=== PATIENT | female | born 1945 | race American Indian/Alaskan Native ===

== ENCOUNTER 2019-11-15 11:51 | Outpatient (CLI) | payer MEDICARE ==
--- NOTE | 2019-11-15 16:09 | Mammography Report ---
DIGITAL DIAGNOSTIC MAMMOGRAM WITH CAD, 11/15/2019 INDICATION: History of right breast cancer status post partial mastectomy. Z85.3 TECHNIQUE: Digital bilateral mammographic imaging was performed. This examination was interpreted with the benefit of Computer-aided Detection analysis. COMPARISON: None available. FINDINGS: Breast Density: The breasts are almost entirely fatty. There is no evidence of dominant mass, suspicious calcifications or architectural distortion in eithe r breast. The right breast is slightly smaller than the left. Scattered bilateral benign calcificatio ns. IMPRESSION: No mammographic evidence of malignancy. Follow up recommendation: Routine yearly BI-RADS Category 2: Benign. A "normal" or negative report should not discourage follow up or biopsy of a clinically significant f inding. A written summary of these findings will be mailed to the patient. The patient will be entered into a mammography reporting system which will generate a reminder letter for the patient's next appointmen t at the appropriate interval. According to the [employer], yearly mammograms are recommended starting at age 40 and continuing as long as a woman is in good health. Breast MRI is recommended for women with an ravindra roximately 20-25% or greater lifetime risk of breast cancer, including women with a strong family his tory of breast or ovarian cancer and women who have been treated for Hodgkin's disease. Signer Name: Reddy White MD Signed: 11/15/2019 4:04 PM Workstation Name: [id number]
== END 2019-11-15 11:52 | disposition home or self-care (01) ==
LOC: MAMMO 11:51
PROVIDERS: ATTEND Internal Medicine
DX: R92.8 Other abnormal and inconclusive findings on diagnostic imaging of breast (principal); Z85.3 Personal history of malignant neoplasm of breast
CPT/HCPCS: 77066

== ENCOUNTER 2020-10-30 08:37 | Outpatient (CLI) | payer MEDICARE ==
--- NOTE | 2020-10-30 15:33 | Mammography Report ---
DIGITAL SCREENING MAMMOGRAM WITH CAD, 10/30/2020 CLINICAL INFORMATION / INDICATION: Routine screening mammography. ROUTINE TECHNIQUE: Digital bilateral 2D mammography was obtained in the craniocaudal and mediolateral obliqu e projections. This examination was interpreted with the benefit of Computer-Aided Detection analysis . COMPARISON: 11/15/2019 FINDINGS: Breast Density: There are scattered areas of fibroglandular density. No dominant mass, suspicious calcifications, or architectural distortion in either breast. There are stable postsurgical changes of the right breast. Bilateral benign-appearing calcifications are stable. IMPRESSION: No mammographic evidence of malignancy. Follow up recommendation: Routine yearly BI-RADS Category 2: Benign. A "normal" or negative report should not discourage follow up or biopsy of a clinically significant f inding. A written summary of these findings will be mailed to the patient. The patient will be entered into a mammography reporting system which will generate a reminder letter for the patient's next appointmen t at the appropriate interval. The [employer] recommends yearly mammograms starting at age 40 and continuing as l dixon as a woman is in good health. Breast MRI is recommended for women with an approximate 20-25% or greater lifetime risk of breast cancer, including women with a strong family history of breast or ova emil cancer or who have been treated for Hodgkin's disease. Signer Name: Billy Paul MD Signed: 10/30/2020 3:28 PM Workstation Name: [email or web address]
== END 2020-10-30 08:38 | disposition home or self-care (01) ==
LOC: MAMMO 08:37
PROVIDERS: ATTEND Clinical Nurse Specialist Adult Health
DX: Z12.31 Encounter for screening mammogram for malignant neoplasm of breast (principal); R92.1 Mammographic calcification found on diagnostic imaging of breast
CPT/HCPCS: 77067

== ENCOUNTER 2022-01-28 07:07 | Emergency (ER) | payer MEDICARE ==
[2022-01-28] MEDS ORDERED: TETANUS,DIPH,PERTUSS(ACELL) VACCINE 0.5 ML SYRINGE IM ONE (09:28)
[2022-01-28] MEDS ORDERED: HYDROcodone/ACETAMINOPHEN 5-325 MG TAB PO ONE (09:28)
--- NOTE | 2022-01-28 09:36 | Emergency Department Report ---
HPI - General Chief Complaint: Head Injury Time Seen by Provider: 01/28/22 09:19 - [facility] HPI: MSE 5 The patient is a 76-year-old female present with chief complaint of head pain after fall. This morning the patient states she believes she tripped over a tree stump and fell striking her face on the concrete. Patient denies loss of consciousness. Patient complains of pain in her head and face as well as her right ring finger. ED Past Medical Hx - Past Medical History Hx of Cancer: Yes (Breast CA status post lymph node dissect) - Surgical History Hx Internal Defibrillator: Yes Additional Surgical History: Bilateral cataract surgery, right lymph node dissection and lumpectomy - Family History Family history: no significant - Social History Smoking Status: Never Smoker Substance Use Type: None - Medications Home Medications: Home Medications Medication Instructions Recorded Confirmed Last Taken Type HYDROcodone/APAP 5-325 [Mercedita 1 each PO Q6HR PRN #10 tablet 01/28/22 Unknown Rx 5/325] ED Review of Systems ROS: Stated complaint: FELL, LUMP ON EYE Other details as noted in HPI Constitutional: no symptoms reported Eyes: other ENT: denies: throat pain Respiratory: no symptoms reported Cardiovascular: denies: chest pain Endocrine: no symptoms reported Gastrointestinal: denies: vomiting Genitourinary: denies: dysuria Musculoskeletal: denies: arthralgia Neurological: headache Physical Exam - Physical Exam Vital Signs: Vital Signs 01/28/22 08:58 Temperature 97.8 F Pulse Rate 92 H Respiratory 18 Rate Blood Pressure 157/75 [Right] O2 Sat by Pulse 97 Oximetry Physical Exam: GENERAL: The patient is well-developed well-nourished female sitting on stretcher with obvious left periorbital swelling. [] HEENT: Normocephalic. Left periorbital swelling and ecchymosis. No hyphema or hypopyon. No subconjunctival hemorrhage appreciated. Extraocular motions are intact. Patient has moist mucous membranes. NECK: Supple. No axial tenderness to palpation but left lateral soreness to palpation CHEST/LUNGS: Clear to auscultation. There is no respiratory distress noted. HEART/CARDIOVASCULAR: Regular. There is no tachycardia. There is no gallop rub or murmur. ABDOMEN: Abdomen is soft, nontender. Patient has normal bowel sounds. There is no abdominal distention. SKIN: There is no rash. There is no edema. There is no diaphoresis. NEURO: The patient is awake, alert, and oriented. The patient is cooperative. The patient has no focal neurologic deficits. The patient has normal speech. GCS 15 MUSCULOSKELETAL: There is no axial tenderness to palpation. There is no evidence of acute injury. ED Course Vital Signs 01/28/22 08:58 Temperature 97.8 F Pulse Rate 92 H Respiratory 18 Rate Blood Pressure 157/75 [Right] O2 Sat by Pulse 97 Oximetry ED Medical Decision Making - Radiology Data Radiology results: report reviewed (CT head, CT facial bones, CT cervical spine), image reviewed (CT head, CT facial bones, CT cervical spine, right hand x-ray) interpreted by me: Right hand x-ray-no acute fracture [facility] [address] [address] Cat Scan Report Signed Patient: EDUARDA LOBO MR#: [id number] : 1945 Acct:[id number] Age/Sex: 76 / F ADM Date: 01/28/22 Loc: ED Attending Dr: Ordering Physician: LUCERO ROSADO MD Date of Service: 01/28/22 Procedure(s): CT head/brain wo con Accession Number(s): [id number] cc: LUCERO ROSADO MD . CT head/brain wo con INDICATION / CLINICAL INFORMATION: 76 years Female; Head injury after trip and fall onto concrete. TECHNIQUE: Routine CT head without contrast. All CT scans at this location are performed using CT dose reduction for ALARA by means of automated exposure control. COMPARISON: None. FINDINGS: BRAIN / INTRACRANIAL CONTENTS: No acute hemorrhage, mass effect, midline shift, hydrocephalus, or acute, large territorial infarct. No signs of significant atrophy or chronic infarct. There are mild areas of increased signal intensity on FLAIR imaging in the white matter of the cerebral hemispheres. These are nonspecific findings and may be related to microangiopathy (hypertension, diabetes, atherosclerosis), given the patient's age. CRANIOCE RVICAL JUNCTION: No significant abnormality. ORBITS: No significant abnormality of visualized orbits. SINUSES / MASTOIDS: Visualized paranasal sinuses and mastoid air cells are essentially clear. ADDITIONAL FINDINGS: Subcutaneous soft tissue swelling is seen in the left periorbital region. No definitive signs of underlying calvarial or facial bone fracture appreciated. Atherosclerotic disease is seen in the anterior circulation. Mild temporomandibular joint disease noted on the right. IMPRESSION: 1. No focal mass, intracranial hemorrhage, hydrocephalus, or acute, large territorial infarct. Signer Name: Jean Stokes MD, III Signed: 01/28/2022 10:03 AM Workstation Name: [id number] Transcribed By: HR Dictated By: Jean Stokes MD Electronically Authenticated By: Jean Stokes MD Signed Date/Time: 01/28/22 1003 DD/ 1000 TD/TT: Print Cancel [facility] [address] [place] [address] Cat Scan Report Signed Patient: EDUARDA LOBO MR#: [id number] : 1945 Acct:[id number] Age/Sex: 76 / F ADM Date: 01/28/22 Loc: ED Attending Dr: Ordering Physician: LUCERO ROSADO MD Date of Service: 01/28/22 Procedure(s): CT facial bones wo con Accession Number(s): [id number] cc: LUCERO ROSADO MD CT facial bones wo con INDICATION / CLINICAL INFORMATION: 76 years Female; Head injury after trip and fall onto concrete. TECHNIQUE: Thin cut axial images obtained. Sagittal and coronal reconstructions performed. All CT scans at this location are performed using CT dose reduction for ALARA by means of automated exposure control. COMPARISON: None available. FINDINGS: Subcutaneous hematoma seen in the left periorbital region. No signs of underlying calvarial or facial bone fracture appreciated. Intraorbital structures are grossly normal. There is mild mucosal thickening in the ethmoids. Mild to moderate temporomandibular joint disease suggested on the right and mild on the left. Right thyroid lobe may have been resected. Please clinically correlate. The left thyroid lobe is mildly enlarged and demonstrates nodules/cysts, as well as coarse calcifications. Follow-up with ultrasound as clinically warranted. Note, the left thyroid lobe is not completely visualized on this study. Parotid, submandibular, and expected location of the sublingual glands are grossly normal. Patient is edentulous. Mild degenerative changes seen in the cervical spine. Please see report from cervical spine CT, performed same day, for pertinent information. IMPRESSION: 1. No signs of acute bony facial trauma. 2. Mildly prominent left thyroid lobe, as described above. Follow-up as clinically warranted. Signer Name: Jean Stokes MD, III Signed: 01/28/2022 10:07 AM Workstation Name: [id number] Transcribed By: HR Dictated By: Jean Stokes MD Electronically Authenticated By: Jean Stokes MD Signed Date/Time: 01/28/22 1007 DD/ 1003 TD/TT: Print Cancel [facility] [address] [place] [address] Cat Scan Report Signed Patient: EDUARDA LOBO MR#: [id number] : 1945 Acct:[id number] Age/Sex: 76 / F ADM Date: 01/28/22 Loc: ED Attending Dr: Ordering Physician: LUCERO ROSADO MD Date of Service: 01/28/22 Procedure(s): CT cervical spine wo con Accession Number(s): [id number] cc: LUCERO ROSADO MD CT cervical spine wo con INDICATION / CLINICAL INFORMATION: 76 years Female; Head injury after trip and fall onto concrete. TECHNIQUE: Axial CT images of the cervical spine were obtained. Sagittal and coronal reformatted images were produced. All CT scans at this location are performed using CT dose reduction for ALARA by means of automated exposure control. COMPARISON: None available. FINDINGS: POST-SURGICAL CHANGES: None. ALIGNMENT: There is moderate reversal the cervical lordosis. However, there is no significant spondylolisthesis. VERTEBRAE: There is multilevel anterior osteophytic formation involving cervical segments. However, there is no clear CT evidence of acute fracture of the cervical spine. INTRAVERTEBRAL DISCS: The left facet and uncovertebral joint hypertrophy at C3-4 results in moderate left neural foraminal narrowing at. There is a slight disc bulge at C4-5 without significant spinal stenosis. There is mild left foraminal narrowing at C5-6 at. The spondylosis and ligamentum flavum hypertrophy at C6-7 appears to efface subarachnoid space. There is mild left neural foraminal narrowing at this level and at C7-T1. ADDITIONAL FINDINGS: The patient appears to be status post right thyroidectomy. There is heterogeneous appearance of the left lobe with focus of relative decreased attenuation within the inferior portion measuring 1.8 x 1.9 cm transversely and correlation would be needed. There are notable arthritic changes involving the right TMJ. IMPRESSION: 1. There is no clear CT evidence of acute fracture of the cervical spine. 2. There are multilevel degenerative the changes as detailed above. 3. The patient is status post right thyroidectomy. There is notable heterogeneous appearance of the left lobe with 1.8 x 1.9 cm low attenuating lesion inferiorly and correlation would. Signer Name: Magdi Lisa MD Signed: 01/28/2022 10:09 AM Workstation Name: [id number] Transcribed By: MR Dictated By: Magdi Lisa MD Electronically Authenticated By: Magdi Lisa MD Signed Date/Time: 01/28/22 1009 DD/ 1001 TD/TT: - Differential Diagnosis Closed head injury, facial fracture, ICH, cerebral contusion, cervical frac Critical care attestation.: If time is entered above; I have spent that time in minutes in the direct care of this critically ill patient, excluding procedure time. ED Disposition Clinical Impression: Closed head injury Disposition: 01 HOME / SELF CARE / HOMELESS Is pt being admited?: No Does the pt Need Aspirin: No Condition: Stable Additional Instructions: Return to the emergency department should you develop worsening symptoms, inability to tolerate food or liquids, high fever or any other concerns Prescriptions: HYDROcodone/APAP 5-325 [Mercedita 5/325] 1 each PO Q6HR PRN #10 tablet PRN Reason: Pain Referrals: PRIMARY CARE, [Primary Care Provider] - 3-5 Days Time of Disposition: 10:46
--- NOTE | 2022-01-28 10:07 | Cat Scan Report ---
. CT head/brain wo con INDICATION / CLINICAL INFORMATION: 76 years Female; Head injury after trip and fall onto concrete. TECHNIQUE: Routine CT head without contrast. All CT scans at this location are performed using CT dos e reduction for ALARA by means of automated exposure control. COMPARISON: None. FINDINGS: BRAIN / INTRACRANIAL CONTENTS: No acute hemorrhage, mass effect, midline shift, hydrocephalus, or acu te, large territorial infarct. No signs of significant atrophy or chronic infarct. There are mild areas of increased signal intensity on FLAIR imaging in the white matter of the cerebr al hemispheres. These are nonspecific findings and may be related to microangiopathy (hypertension, d iabetes, atherosclerosis), given the patient's age. CRANIOCERVICAL JUNCTION: No significant abnormality. ORBITS: No significant abnormality of visualized orbits. SINUSES / MASTOIDS: Visualized paranasal sinuses and mastoid air cells are essentially clear. ADDITIONAL FINDINGS: Subcutaneous soft tissue swelling is seen in the left periorbital region. No def initive signs of underlying calvarial or facial bone fracture appreciated. Atherosclerotic disease is seen in the anterior circulation. Mild temporomandibular joint disease noted on the right. IMPRESSION: 1. No focal mass, intracranial hemorrhage, hydrocephalus, or acute, large territorial infarct. Signer Name: Jean Stokes MD, III Signed: 01/28/2022 10:03 AM Workstation Name: [id number]
--- NOTE | 2022-01-28 10:11 | Cat Scan Report ---
CT facial bones wo con INDICATION / CLINICAL INFORMATION: 76 years Female; Head injury after trip and fall onto concrete. TECHNIQUE: Thin cut axial images obtained. Sagittal and coronal reconstructions performed. All CT scans at this location are performed using CT dose reduction for ALARA by means of automated exposure control. COMPARISON: None available. FINDINGS: Subcutaneous hematoma seen in the left periorbital region. No signs of underlying calvarial or facial bone fracture appreciated. Intraorbital structures are grossly normal. There is mild mucosal thickening in the ethmoids. Mild to moderate temporomandibular joint disease suggested on the right and mild on the left. Right thyroid lobe may have been resected. Please clinically correlate. The left thyroid lobe is mild ly enlarged and demonstrates nodules/cysts, as well as coarse calcifications. Follow-up with ultrasou nd as clinically warranted. Note, the left thyroid lobe is not completely visualized on this study. Parotid, submandibular, and expected location of the sublingual glands are grossly normal. Patient is edentulous. Mild degenerative changes seen in the cervical spine. Please see report from cervical spine CT, perfo rmed same day, for pertinent information. IMPRESSION: 1. No signs of acute bony facial trauma. 2. Mildly prominent left thyroid lobe, as described above. Follow-up as clinically warranted. Signer Name: Jean Stokes MD, III Signed: 01/28/2022 10:07 AM Workstation Name: [id number]
--- NOTE | 2022-01-28 10:13 | Cat Scan Report ---
CT cervical spine wo con INDICATION / CLINICAL INFORMATION: 76 years Female; Head injury after trip and fall onto concrete. TECHNIQUE: Axial CT images of the cervical spine were obtained. Sagittal and coronal reformatted images were pr oduced. All CT scans at this location are performed using CT dose reduction for ALARA by means of aut omated exposure control. COMPARISON: None available. FINDINGS: POST-SURGICAL CHANGES: None. ALIGNMENT: There is moderate reversal the cervical lordosis. However, there is no significant spondyl olisthesis. VERTEBRAE: There is multilevel anterior osteophytic formation involving cervical segments. However, t here is no clear CT evidence of acute fracture of the cervical spine. INTRAVERTEBRAL DISCS: The left facet and uncovertebral joint hypertrophy at C3-4 results in moderate left neural foraminal narrowing at. There is a slight disc bulge at C4-5 without significant spinal s tenosis. There is mild left foraminal narrowing at C5-6 at. The spondylosis and ligamentum flavum hypertrophy at C6-7 appears to efface subarachnoid space. There is mild left neural foraminal narrowing at this l evel and at C7-T1. ADDITIONAL FINDINGS: The patient appears to be status post right thyroidectomy. There is heterogeneou s appearance of the left lobe with focus of relative decreased attenuation within the inferior portio n measuring 1.8 x 1.9 cm transversely and correlation would be needed. There are notable arthritic ch anges involving the right TMJ. IMPRESSION: 1. There is no clear CT evidence of acute fracture of the cervical spine. 2. There are multilevel degenerative the changes as detailed above. 3. The patient is status post right thyroidectomy. There is notable heterogeneous appearance of the l eft lobe with 1.8 x 1.9 cm low attenuating lesion inferiorly and correlation would. Signer Name: Magdi Lisa MD Signed: 01/28/2022 10:09 AM Workstation Name: [id number]
--- NOTE | 2022-01-28 10:47 | XRay Report ---
RIGHT FINGERS 3 VIEWS INDICATION: Ring finger pain after fall. COMPARISON: None. IMPRESSION: No acute osseous abnormality or joint pathology is detected. The soft tissues are unrem arkable. Signer Name: Miguelito Veras Jr, MD Signed: 01/28/2022 10:42 AM Workstation Name: [id number]
[2022-01-28] MEDS ORDERED: BACITRACIN/POLYMYXIN B OINT 28.35 GM TP ONE (11:05)
[2022-01-28 11:07] VITALS: BP 149/89
[2022-01-28] MEDS ORDERED: NEOMY 3.5 MG/BACIT 400 UNITS/POLY B 5000 UNITS/GM OINT PACKET TP ONE (11:07)
== END 2022-01-28 11:07 | disposition home or self-care (01) ==
LOC: ED 07:07
DX: S09.90XA Unspecified injury of head, initial encounter (principal); Z85.6 Personal history of leukemia; X58.XXXA Exposure to other specified factors, initial encounter; Y93.89 Activity, other specified; Y92.89 Other specified places as the place of occurrence of the external cause; Y99.8 Other external cause status
CPT/HCPCS: 70450; 70486; 72125; 90471; 90715; 99284